=== PATIENT | female | born 1990 | race Caucasian/White ===

== ENCOUNTER → 2017-11-27 | Outpatient (REF) ==
--- NOTE | 2017-11-27 10:51 | RADIOLOGY IMAGING REPORT ---
[place] [facility] [place]: Corrine Guevara : 1990 MR: [id number] V: [id number] EXAM DATE: ORDERING PHYSICIAN: CLIVE MONTESINOS TECHNOLOGIST: Location: [facility] - [place] Patient: Corrine Guevara : 1990 Visit/Account:[id number] Date of Sevice: 11/27/2017 Exam type: CHEST SINGLE AP History: Work physical, social smoker Comparison: None. Findings: There is mild hyperinflation of the lung sullivan. There is no evidence of focal infiltrates, pleural effusions or pulmonary edema. Cardiac silhouette is normal in size. IMPRESSION: 1. Mild hyperinflation lung sullivan although no evidence of acute pulmonary consolidation Report Dictated By: Daisy Olivares MD at 11/27/2017 10:47 AM Report E-Signed By: Daisy Olivares MD at 11/27/2017 10:48 AM WSN:[email or web address]
== END ==
LOC: RAD 09:56
PROVIDERS: ATTEND Physician Assistant Medical
DX: Z02.9 Encounter for administrative examinations, unspecified (principal)
CPT/HCPCS: 71045